=== PATIENT | male | born 1950 | race Caucasian/White ===

== ENCOUNTER 2017-02-09 21:55 | Inpatient (IN) | payer OTHER ==
[~2017-02-09] VITALS: Ht 167.6 cm; Wt 47.7 kg
[2017-02-09] MEDS ORDERED: SODIUM CHLORIDE 0.9% 250ML 250 ML IV STA (22:12)
[2017-02-09] MEDS ORDERED: AMPICILLIN/SULBACTAM SOD INJ 3,000 MG in SODIUM CHLORIDE 0.9% 100ML 100 ML IV ONE (22:15)
[2017-02-09] MEDS ORDERED: DEXAMETHASONE SOD INJ 10 MG/ML VIAL IV ONE (22:15)
[2017-02-09] MEDS ORDERED: OPTIRAY 320 IV PRN (22:30)
[2017-02-09] MEDS ORDERED: GLIP5TAB11 PO (22:36)
[2017-02-09] MEDS ORDERED: LISI-789 PO (22:37)
[2017-02-09] MEDS ORDERED: ASPI325T39 PO (22:38)
[2017-02-09] MEDS ORDERED: GABA-113 PO (22:38)
[2017-02-09] MEDS ORDERED: METF-384 PO (22:39)
[2017-02-09] MEDS ORDERED: LINA1TAB PO (22:40)
[2017-02-09] MEDS ORDERED: ACET325T96 PO (22:42)
[2017-02-09 22:51] LABS: BASO % 0.2 %; BASO ABS # 0.02 K/uL (0-0.2); COMPLETE YES; EOS % 2.4 %; IG% 0.7 %; LYMPH ABS # 2.84 K/uL (1.2-3.4); MEAN CELL VOLUME 91.5 fL (80-100); MEAN CORPUSCULAR HEMOGLOBIN 30.9 pg (25-34); MEAN CORPUSCULAR HGB CONC 33.7 g/dl (32-36); MEAN PLATELET VOLUME 9.6 fL (7.4-10.4); MONO % 9.8 %; NEUT % 64.9 %; PLATELET COUNT 399 K/uL (130-400); WHITE BLOOD COUNT 12.93 K/uL (4.8-10.8)
[2017-02-09 23:17] LABS: BLOOD UREA NITROGEN 15 mg/dl (7-18); BUN/CREATININE RATIO 17.1 (10-20); CALCIUM 10.1 mg/dl (8.5-10.1); CARBON DIOXIDE 30 mmol/L (21-32); CHLORIDE 100 mmol/L (98-107); CREATININE 0.87 mg/dl (0.60-1.40); GLUCOSE 432 mg/dl (70-99); POTASSIUM 4.6 mmol/L (3.5-5.1); SODIUM 137 mmol/L (136-145)
[2017-02-09 23:59] LABS: VEN BLD GAS O2 SATURATION < 60.0 %; VEN BLOOD GAS BASE EXCESS -3.8 mmol/L; VENOUS BLOOD GAS PCO2 52 mmHg (38.0-50.0); VENOUS BLOOD GAS PO2 18 mmHg
[2017-02-10] MEDS ORDERED: SODIUM CHLORIDE 0.9% 1000ML 1,000 ML IV STA (00:08)
[2017-02-10] MEDS ORDERED: NovoLIN-R INSULIN PER UNIT CHARGE IV STA (00:08)
[2017-02-10] MEDS ORDERED: ONDANSETRON INJ 2 MG/ML 2 ML VIAL IV PRN (02:30)
[2017-02-10] MEDS ORDERED: ACETAMINOPHEN 325 MG TAB PO PRN (02:30)
[2017-02-10] MEDS ORDERED: MoRPHine SULFATE 2 MG/ML CARP IV PRN (02:30)
[2017-02-10] MEDS ORDERED: POLYETHYLENE (MIRALAX) 17 GM PACK PO PRN (02:30)
[2017-02-10] MEDS ORDERED: ALUMINUM/MAGNESIUM/SIMETH (MAALOX MAX) 30 ML UDC PO PRN (02:30)
--- NOTE | 2017-02-10 02:37 | History and Physical ---
History & Physical Date & Time of Service: Feb 10, 2017 at 02:37 Chief Complaint: Swelling On Rt Side Of Face,Jaw Pain,Unable To Eat Primary Care Physician: No Doctor, Assigned History of Present Illness Source: patient 67-year-old male with a past medical history of diabetes, stroke presented the ER with complaints of right-sided facial swelling and pain. The patient is originally from [place] and [place] in [place]. He presented to the ER with complaints of toothache and swelling on his right mandible which started 2 days ago and had worsened after he ate a hard piece of bread. He stated that he also had some drainage from the swelling into his oral cavity. He uses dentures for his lower teeth and hasn't been able to use them due to the swelling and had noticed a darker area on the swelling. Denied any fevers or chills. Denied chewing tobacco but smokes about 1 pack of cigarettes per day Past Medical/Surgical History Diabetes, stroke Social History Smoking Status: Current Every Day Smoker Allergies Coded Allergies: Empagliflozin (Unverified Allergy, Severe, JOINT AND MUSCLE PAIN / NO APPETITE, 02/09/17) Canagliflozin (Unverified Allergy, Intermediate, RASH AND SWELLING, ) Home Medications Scheduled Acetaminophen Tab (Tylenol), 650 MG PO DAILY Amoxicillin & Pot Clavulanate (Augmentin 875-125 mg), 1 TAB PO BID Aspirin (Aspirin Ec), 325 MG PO DAILY Gabapentin (Neurontin), 300 MG PO TID Glipizide (Glucotrol), 5 MG PO BID Linagliptin (Tradjenta), 5 MG PO DAILY Lisinopril (Zestril), 2.5 MG PO DAILY Metformin Hcl (Glucophage), 1,000 MG PO BID Review of Systems Constitutional: No fever, No chills Eyes: No worsening of vision ENT: + problem reported (facial swelling) Respiratory: No cough, No sputum Cardiovascular: No chest pain Abdomen: No pain, No nausea, No vomiting Musculoskeletal: No joint pain Genitourinary - Male: No hematuria Neurologic: No memory loss Psychiatric: No depression symptoms Endocrine: No fatigue Hematologic / Lymphatic: No abnormal bleeding/bruising Integumentary: No rash Physical Exam Vital Signs Date Time Temp Pulse Resp B/P (MAP) Pulse Ox O2 Delivery O2 Flow Rate FiO2 02/10/17 01:29 89 16 124/73 98 Room Air 02/10/17 00:59 87 02/10/17 00:00 71 16 132/73 98 Room Air 02/09/17 22:02 36.7 99 16 124/70 95 Room Air General Appearance: WD/WN, no apparent distress Head: normocephalic Eyes: normal inspection ENT: hearing grossly normal, + pertinent finding (Right mandibular arae swollen , tender to palpation) Neck: supple Respiratory/Chest: chest non-tender, lungs clear, normal breath sounds, no respiratory distress, no accessory muscle use Cardiovascular: regular rate, rhythm Abdomen/GI: normal bowel sounds, non tender, soft Back: normal inspection Extremities/Musculoskelatal: no pedal edema Neurologic/Psych: alert, normal mood/affect, oriented x 3 Skin: normal color Diagnostics Laboratory Results Results Past 24 Hours Test 02/09/17 22:35 02/09/17 23:47 02/10/17 01:57 Range/Units White Blood Count 12.93 4.8-10.8 K/uL Red Blood Count 4.70 4.7-6.1 M/uL Hemoglobin 14.5 14.0-18.0 g/dL Hematocrit 43.0 42-52 % Mean Corpuscular Volume 91.5 80-100 fL Mean Corpuscular Hemoglobin 30.9 25-34 pg Mean Corpuscular Hemoglobin Concent 33.7 32-36 g/dl Platelet Count 399 130-400 K/uL Mean Platelet Volume 9.6 7.4-10.4 fL Neutrophils (%) (Auto) 64.9 % Lymphocytes (%) (Auto) 22.0 % Monocytes (%) (Auto) 9.8 % Eosinophils (%) (Auto) 2.4 % Basophils (%) (Auto) 0.2 % Neutrophils # (Auto) 8.40 1.4-6.5 K/uL Lymphocytes # (Auto) 2.84 1.2-3.4 K/uL Monocytes # (Auto) 1.27 0.11-0.59 K/uL Eosinophils # (Auto) 0.31 0-0.5 K/uL Basophils # (Auto) 0.02 0-0.2 K/uL RDW Standard Deviation 44.5 36.4-46.3 fL RDW Coefficient of Variation 13.3 11.5-14.5 % Immature Granulocyte % (Auto) 0.7 % Immature Granulocyte # (Auto) 0.09 0.00-0.02 K/uL Sodium Level 137 136-145 mmol/L Potassium Level 4.6 3.5-5.1 mmol/L Chloride Level 100 98-107 mmol/L Carbon Dioxide Level 30 21-32 mmol/L Anion Gap 7.0 3-11 mmol/L Blood Urea Nitrogen 15 7-18 mg/dl Creatinine 0.87 0.60-1.40 mg/dl Est Creatinine Clear Calc Drug Dose 55.2 ml/min Estimated GFR () 102.8 Estimated GFR (Non- 88.7 BUN/Creatinine Ratio 17.1 10-20 Random Glucose 432 70-99 mg/dl Calcium Level 10.1 8.5-10.1 mg/dl Troponin I < 0.015 0-0.045 ng/ml Beta-Hydroxybutyric Acid 5.00 0.2-2.81 mg/dL Venous Blood pH 7.27 7.36-7.41 Venous Blood Partial Pressure CO2 52 38.0-50.0 mmHg Venous Blood Partial Pressure O2 18 mmHg Venous Blood HCO3 23 mmol/L Venous Blood Oxygen Saturation < 60.0 % Venous Blood Base Excess -3.8 mmol/L Bedside Glucose 291 70-99 mg/dl Diagnostic Radiology Facial CT: Abscess abutting the right mandible. The patient is largely edentulous though there is a tooth fragment with periapical lucency in abutting the region of the soft tissue abscess. Suspect odontogenic spread of infection. Lucency seen in region of right mandible adjacent to soft tissue abscess likely periapical abscess. Small fluid collections in the tonsillar region may represent small tonsillar abscess. These possible abscesses measure less than 1 cm in size Impression Assessment and Plan 67-year-old male with a past medical history of diabetes, stroke presented the ER with complaints of right-sided facial swelling and pain which started about 2 days ago. Denied any fevers and chills but has pain and swelling in the right mandibular area. Cellulitis secondary to Dental/periapical abscess: - Facial CT:Abscess abutting the right mandible. The patient is largely edentulous though there is a tooth fragment with periapical lucency in abutting the region of the soft tissue abscess. Suspect odontogenic spread of infection. Lucency seen in region of right mandible adjacent to soft tissue abscess likely periapical abscess. - Consider MRI to rule out osteomyelitis - Started on Unasyn and clindamycin - Consult maxillofacial surgery - Pain control with morphine as needed Hyperglycemia: - Blood sugar on arrival 432 - Received 10 units of insulin in the ER, repeat blood sugar 291 - Home medications held, ISS - Hemoglobin A1c ordered - Continue lisinopril History of smoking: - Smoking cessation counseling - NicoDerm patch DVT prophylaxis: SCDs Chemical anticoagulations avoided in anticipation of any surgical intervention DO NOT RESUSCITATE Disposition: Admitted to [facility] Please contact Daughter, Saige Beavers regarding treatment plan: Contact number: [phone] alternate: [phone] Attending Addendum: I physically seen and examined this patient, have supervised the medical residents activities, and agree with the H&P as noted above with the following exceptions: NONE The patient is awake, well-developed and adequately nourished, alert and oriented 3, normocephalic and atraumatic, lying in bed and in no acute distress. HEENT--PERRL, EOMI, mucous membranes and oropharynx dry, right facial swelling and tenderness along zygomatic arch toward maxillary bridge and then toward mental foramen. Neck--supple, no JVD or bruits, thyroid normal, trachea midline, no adenopathy. Heart--normal S1 and S2, no extra beats, no murmurs, rubs or gallops. Lungs--clear bilaterally with good air movement, no respiratory distress, no accessory muscle use. Abdomen--normal bowel sounds and soft, nontender and nondistended, no hernias or masses, no organomegaly. Extremities--no cyanosis, clubbing or edema. There are good distal pulses b/l. Dermatologic--normal skin turgor, normal color, warm and dry. Neurologic--cranial nerves II through XII grossly intact, motor and sensory examination normal. Rheumatologic--normal range of motion. Psychiatric--normal affect. Assessment and Plan: 1. Abscess abutting the right mandible/largely edentulous/periapical lucency with possible odontogenic spread of infection--the patient will be admitted to the medical surgical floor. Continue IV Unasyn 3 g every 6 hours begun emergency department, and add clindamycin 900 mg IV every 6 hours. Consult maxillofacial surgery. Advised tobacco cessation and start on NicoDerm patch. Place on IV fluids, and keep nothing by mouth for possible procedure. Level of Care Med/Surg Resuscitation Status DO NOT RESUSCITATE VTE Prophylaxis VTE Risk Assessment Done? Y/N: Yes Risk Level: Moderate Given or contraindicated: SCD's Resident Tracking Resident Involvement: Resident Care Provided Care Provided: Adult Hospital Medicine
[2017-02-10] MEDS ORDERED: GLUCAGON FOR INJ 1 MG VIAL SQ PRN (02:45)
[2017-02-10] MEDS ORDERED: GLUCOSE 40% GEL 15 GM TUBE PO PRN (02:45)
[2017-02-10] MEDS ORDERED: DEXTROSE 50% 50 ML SYR IV PRN (02:45)
[2017-02-10] MEDS ORDERED: GLUCOSE 10 TABS/TUBE PO PRN (02:45)
[2017-02-10 03:10] LABS: ALKALINE PHOSPHATASE 179 U/L (45-117); ALT/SGPT 17 U/L (12-78)
[2017-02-10 03:25] VITALS: BP 102/66; PULSE 82; TEMP 37.2; O2SAT 95; BMI 17.0
[2017-02-10 03:29] LABS: AST/SGOT 7 U/L (15-37)
[2017-02-10] MEDS ORDERED: IV FLUIDS COMPLETED PRN (03:45)
[2017-02-10] MEDS: CLINDAMYCIN IV 600 MG in DEXTROSE 5% 50ML 50 ML IV SCH ×2 (04:16→12:53)
[2017-02-10] MEDS: AMPICILLIN/SULBACTAM SOD INJ 3,000 MG in SODIUM CHLORIDE 0.9% 100ML 100 ML IV SCH ×2 (06:02→12:53)
[2017-02-10] MEDS: INSULIN ASPART 100 UNITS/ML 3 ML PEN SC SCH ×2 (06:30→12:54)
--- NOTE | 2017-02-10 06:32 | EMERGENCY ROOM VISIT NOTE ---
History First contact with patient: 22:05 Chief Complaint: FACIAL PAIN/INJURY Stated Complaint: DENTAL ABSCESS, HYPERGLYCEMIA History of Present Illness The patient is a 67 year old male who presents to the Emergency Room with complaints of dental pain and infection for the past few days who is visiting [place]. Tetanus is current. Patient wears dentures. He has no current teeth. Patient describes the pain as throbbing, ranging in severity 6 out of 10 worse with chewing and better with rest. Patient denies fevers, chest pain, dyspnea, neck pain, neck stiffness, diaphoresis, vomiting, diarrhea. Review of Systems See HPI for pertinent positives & negatives. A total of 10 systems reviewed and were otherwise negative. Past Medical/Surgical History Medical Problems: (1) Dental abscess (2) Hyperglycemia Diabetes, CVA with left hemiparalysis, hypertension Social History Smoking Status: Current Every Day Smoker Alcohol Use: none Drug Use: none Occupation Status: retired Current/Historical Medications Scheduled Acetaminophen Tab (Tylenol), 650 MG PO DAILY Aspirin (Aspirin Ec), 325 MG PO DAILY Gabapentin (Neurontin), 300 MG PO TID Glipizide (Glucotrol), 5 MG PO BID Linagliptin (Tradjenta), 5 MG PO DAILY Lisinopril (Zestril), 2.5 MG PO DAILY Metformin Hcl (Glucophage), 1,000 MG PO BID Allergies Coded Allergies: Empagliflozin (Unverified Allergy, Severe, JOINT AND MUSCLE PAIN / NO APPETITE, 02/09/17) Canagliflozin (Unverified Allergy, Intermediate, RASH AND SWELLING, ) Physical Exam Vital Signs Date Time Temp Pulse Resp B/P (MAP) Pulse Ox O2 Delivery O2 Flow Rate FiO2 02/10/17 01:29 89 16 124/73 98 Room Air 02/10/17 00:59 87 02/10/17 00:00 71 16 132/73 98 Room Air 02/09/17 22:02 36.7 99 16 124/70 95 Room Air Pain Rating (0-10): 0 Physical Exam VITALS: Vitals are noted on the nurse's note and reviewed by myself. Vital signs stable. GENERAL: Pleasant male, in no acute distress, nondiaphoretic, well-developed well-nourished. SKIN: The skin was without rashes, erythema, edema, or bruising. There is no tenting of the skin. Capillary reflex less than 2 seconds. HEAD: Normocephalic atraumatic. EARS: External auditory canals clear, tympanic membranes pearly carlson without erythema or effusion bilaterally. EYES: Pupils equal round and reactive to light and accommodation. Conjunctivae without injection, sclerae without icterus. Extraocular movements intact. NOSE: Patent, turbinates without inflammation or discharge. No sinus tenderness. MOUTH: Mucous membranes mildly dry. Pharynx without erythema or exudate. Uvula midline. Airway patent. Tongue does not deviate. Dental exam: Right lower gumline erythematous and edematous concerning for abscess. No teeth present. NECK: Supple without nuchal rigidity. No lymphadenopathy. No thyromegaly. Cervical spine is nontender. No JVD. HEART: Regular rate and rhythm LUNGS: Clear to auscultation bilaterally without wheezes, rales or rhonchi. No dullness to percussion. No retractions or accessory muscle use. ABDOMEN: Positive bowel sounds x 4. Normal tympanic percussion. Soft, nontender, without masses or organomegaly. Murry sign negative. No guarding or rebound tenderness. MUSCULOSKELETAL: No muscle atrophy, erythema, or edema noted. NEURO: Patient was alert and oriented to person place and time. Normal sensation to light and sharp touch. No new focal neurological deficits. Medical Decision & Procedures Laboratory Results 02/09/17 22:35 Red Blood Count 4.70, Mean Corpuscular Volume 91.5, Mean Corpuscular Hemoglobin 30.9, Mean Corpuscular Hemoglobin Concent 33.7, Mean Platelet Volume 9.6, Neutrophils (%) (Auto) 64.9, Lymphocytes (%) (Auto) 22.0, Monocytes (%) (Auto) 9.8, Eosinophils (%) (Auto) 2.4, Basophils (%) (Auto) 0.2, Neutrophils # (Auto) 8.40, Lymphocytes # (Auto) 2.84, Monocytes # (Auto) 1.27, Eosinophils # (Auto) 0.31, Basophils # (Auto) 0.02 Test 02/09/17 22:35 02/09/17 23:47 02/10/17 01:57 White Blood Count 12.93 K/uL (4.8-10.8) Red Blood Count 4.70 M/uL (4.7-6.1) Hemoglobin 14.5 g/dL (14.0-18.0) Hematocrit 43.0 % (42-52) Mean Corpuscular Volume 91.5 fL (80-100) Mean Corpuscular Hemoglobin 30.9 pg (25-34) Mean Corpuscular Hemoglobin Concent 33.7 g/dl (32-36) Platelet Count 399 K/uL (130-400) Mean Platelet Volume 9.6 fL (7.4-10.4) Neutrophils (%) (Auto) 64.9 % Lymphocytes (%) (Auto) 22.0 % Monocytes (%) (Auto) 9.8 % Eosinophils (%) (Auto) 2.4 % Basophils (%) (Auto) 0.2 % Neutrophils # (Auto) 8.40 K/uL (1.4-6.5) Lymphocytes # (Auto) 2.84 K/uL (1.2-3.4) Monocytes # (Auto) 1.27 K/uL (0.11-0.59) Eosinophils # (Auto) 0.31 K/uL (0-0.5) Basophils # (Auto) 0.02 K/uL (0-0.2) RDW Standard Deviation 44.5 fL (36.4-46.3) RDW Coefficient of Variation 13.3 % (11.5-14.5) Immature Granulocyte % (Auto) 0.7 % Immature Granulocyte # (Auto) 0.09 K/uL (0.00-0.02) Est Creatinine Clear Calc Drug Dose 55.2 ml/min Total Bilirubin 0.4 mg/dl (0.2-1) Direct Bilirubin 0.1 mg/dl (0-0.2) Aspartate Amino Transf (AST/SGOT) 7 U/L (15-37) Alanine Aminotransferase (ALT/SGPT) 17 U/L (12-78) Alkaline Phosphatase 179 U/L (45-117) Troponin I < 0.015 ng/ml (0-0.045) Total Protein 7.5 gm/dl (6.4-8.2) Albumin 3.6 gm/dl (3.4-5.0) Beta-Hydroxybutyric Acid 5.00 mg/dL (0.2-2.81) Venous Blood pH 7.27 (7.36-7.41) Venous Blood Partial Pressure CO2 52 mmHg (38.0-50.0) Venous Blood Partial Pressure O2 18 mmHg Venous Blood HCO3 23 mmol/L Venous Blood Oxygen Saturation < 60.0 % Venous Blood Base Excess -3.8 mmol/L Bedside Glucose 291 mg/dl (70-99) Medications Administered Medications (Trade) Dose Ordered Sig/Vince Route Start Time Stop Time Status Last Admin Dose Admin Ampicillin Sodium/ Sulbactam Sodium 3000 mg/Sodium Chloride 108 ml @ 200 mls/hr ONE ONCE IV 02/09/17 22:15 02/09/17 22:47 DC 02/09/17 22:47 200 MLS/HR Dexamethasone Sodium Phosphate (Decadron Inj) 10 mg NOW ONCE IV 02/09/17 22:15 02/09/17 22:16 DC 02/09/17 22:45 10 MG Sodium Chloride 250 ml @ 999 mls/hr Q16M STAT IV 02/09/17 22:12 02/09/17 22:27 DC 02/09/17 22:44 999 MLS/HR Sodium Chloride 1,000 ml @ 999 mls/hr Q1H1M STAT IV 02/10/17 00:08 02/10/17 01:08 DC 02/10/17 00:08 999 MLS/HR Insulin Human Regular (novoLIN-R U-100 PER UNIT) 10 units NOW STAT IV 02/10/17 00:08 02/10/17 00:10 DC 02/10/17 01:24 10 UNITS ED Course Prior records/ancillary studies reviewed and summarized above. Nursing notes reviewed. Additional history obtained from family. The patient's history was concerning for dental infection. Differential diagnosis: Etiologies such as metabolic, infection, hypo/hyperglycemia, electrolyte abnormalities, cardiac sources, intracerebral event, toxicologic, neurologic, as well as others were entertained. Physical examination: As above. ER treatment provided: IV Lock IV fluids, insulin, Unasyn On reassessment the patient felt better. Diagnostics interpretation by me: ECG: Normal sinus, normal intervals, no acute ST-T wave changes. Impression normal sinus rhythm interpreted by myself The labs revealed hyperglycemia. PH on VBG is slightly low. No anion gap. Leukocytosis. Imaging studies: CT FACIAL: Abscess abutting the right mandible. The patient is largely edentulous though there is a tooth fragment with periapical lucency abutting the region of soft tissue abscess. Example image 46/300. Suspect odontogenic spread of infection. Lucency seen in region of right mandible adjacent to soft tissue abscess likely periapical abscess. Small fluid collections in the tonsillar regions may represent small tonsillar abscesses. These possible abscesses measure less than 1 cm in size. Radiologist: Tomás Engle M.D. Study ready at 23:54 and initial results transmitted Consultation: A consultation was placed with the hospitalist, Emanuel Cooper. The case was discussed and diagnostics were reviewed. The patient was evaluated in the ER for further treatment. Exam and history seem consistent with dental infection with hyperglycemia with concerns for developing DKA. Patient will be evaluated by medicine. He was hydrated as above and started on antibiotics. He is given insulin. Negative troponin and EKG.By the evaluation outlined above emergent etiologies such as electrolyte abnormalities, cardiac sources, intracerebral event, toxologic, neurologic, metabolic, as well as others were deemed relatively unlikely. The pt informed about the findings as listed above. All questions were answered and pleased with the treatment. Case reviewed with my attending. Medical Decision as above Impression Primary Impression: Dental abscess Additional Impression: Hyperglycemia Departure Information Dispostion Admitted as an inpatient Condition FAIR Referrals No Doctor, Assigned (PCP) Forms HOME CARE DOCUMENTATION FORM, IMPORTANT VISIT INFORMATION Patient Instructions My [facility] Problem Qualifiers
[2017-02-10 07:26] VITALS: BP 100/64; PULSE 71; TEMP 36.8; O2SAT 94
--- NOTE | 2017-02-10 07:31 | DIAGNOSTIC IMAGING REPORT ---
FACIAL-MAXILLOFACIAL WITH CLINICAL HISTORY: 67 years-old Male presenting with right lower jaw infx. TECHNIQUE: Multidetector CT of the face was performed after the administration of intravenous contrast. COMPARISON: None. CT DOSE: The estimated cumulative dose is 760.89 mGy.cm. FINDINGS: Field Agronomist topogram: Unremarkable. Rim-enhancing fluid collection along the labial aspect of the right mandibular body, measuring 19 mm in diameter. The adjacent right mandible demonstrates subtle asymmetric cortical thinning relative to the left. The single tooth that is remaining is in this region has an associated periapical lucency with agus cortical disruption along the labial aspect (series 3 image 125). This is in direct communication with the soft tissue abscess. Otherwise, the patient is edentulous. Microcystic change of the tonsils with the largest cystic region measuring 3 mm with few foci of small calcifications. These are consistent with tonsilloliths within dilated tonsillar crypts. No convincing evidence of peritonsillar abscess. Paranasal sinuses and mastoid air cells clear. Orbits normal. Vessels patent. Arachnoid granulations noted along the course of the right transverse sinus. Limited intracranial evaluation within normal limits for age. IMPRESSION: 1. 19 mm odontogenic abscess overlying the right mandibular body associated with the single remaining right mandibular tooth and periapical abscess. Electronically signed by: Leroy Mojica M.D. 02/10/2017 7:29 AM Dictated Date/Time: 02/10/2017 7:18 AM
[2017-02-10 07:58] LABS: BUN/CREATININE RATIO 31.2 (10-20); CREATININE 0.49 mg/dl (0.60-1.40)
[2017-02-10 08:01] LABS: ESTIMATED AVERAGE GLUCOSE 226 mg/dl; HA1C FLAG Normal (Normal)
[2017-02-10 08:02] LABS: POTASSIUM 3.9 mmol/L (3.5-5.1)
[2017-02-10] MEDS ORDERED: D5W AND NSS 1,000 ML IV SCH (08:30)
[2017-02-10] MEDS: GABAPENTIN 300 MG CAP PO SCH ×2 (08:47→14:00)
[2017-02-10] MEDS ORDERED: LISINOPRIL 2.5 MG TAB PO SCH (09:00)
[2017-02-10] MEDS ORDERED: ASPIRIN 325 MG ECTAB PO SCH (09:00)
[2017-02-10] MEDS ORDERED: NICOTINE 21 MG/24 HR TDSY TD SCH (09:00)
[2017-02-10 12:03] VITALS: BP 100/64; PULSE 71; TEMP 36.8; O2SAT 94
[2017-02-10] MEDS ORDERED: AMOX875T PO ×2 (13:45→14:21)
--- NOTE | 2017-02-10 13:53 | Discharge Instructions ---
Discharge Instructions Date of Service Feb 10, 2017. Admission Reason for Admission: Dental Abscess, Hyperglycemia Discharge Discharge Diagnosis / Problem: Dental Abscess Discharge Goals Goal(s): Decrease discomfort, Improve disease control Activity Recommendations Activity Limitations: per Instructions/Follow-up section . Instructions / Follow-Up Instructions / Follow-Up During this visit, you were diagnosed with a dental abscess in the right side of your jaw. The abscess may drain as it heals. You can massage the area as you are able to help with this process. You have been treated with some antibiotics and painkillers. An appointment is being set up for you to see a surgeon (Dr. Guallpa) who will determine if you need to have the abscess drained or not. They will contact you with the details of this appointment. We are sending you home on an antibiotic called Augmentin. Take 1 tablet TWICE daily with food. You may be able to stop this sooner after your appointment with the surgeon. Continue to take the antibiotic and be sure to ask at the appointment next week if you should continue to take the antibiotic or not. If your symptoms worsen before your appointment next week, please return to the ED. Current Hospital Diet Patient's current hospital diet: Regular Diet, Diabetes Type 2 Diet Discharge Diet Recommended Diet: Diabetes Type 2 Diet Pending Studies Studies pending at discharge: no Laboratory Results Hemoglobin A1c Test 02/10/17 06:42 Range/Units Estimated Average Glucose 226 mg/dl Hemoglobin A1c 9.5 H 4.5-5.6 % Medical Emergencies . Who to Call and When: Medical Emergencies: If at any time you feel your situation is an emergency, please call 911 immediately. . Non-Emergent Contact Non-Emergency issues call your: Primary Care Provider . . "Provider Documentation" section prepared by Leisa Denton. . VTE Core Measure Inpt VTE Proph given/why not?: SCD's
[2017-02-10 14:56] VITALS: Ht 167.6 cm; Wt 47.7 kg
--- NOTE | 2017-02-10 16:41 | Discharge Summary ---
Discharge Summary Date of Service Feb 10, 2017. (Leisa Denton M.D.) Discharge Summary Admission Date: Feb 10, 2017 at 02:36 Discharge Date: Feb 10, 2017 Discharge Disposition: Home Principal Diagnosis: Dental abscess Procedures: Facial CT: Abscess abutting the right mandible. The patient is largely edentulous though there is a tooth fragment with periapical lucency in abutting the region of the soft tissue abscess. Suspect odontogenic spread of infection. Lucency seen in region of right mandible adjacent to soft tissue abscess likely periapical abscess. Consultations: Oromaxillofacial surgeon (Leisa Denton M.D.) Medication Reconciliation New Medications: Amoxicillin & Pot Clavulanate (Augmentin 875-125 mg) 1 Tab Tab 1 TAB PO BID for 14 Days, #28 TAB Continued Medications: Acetaminophen Tab (Tylenol) 325 Mg Tab 650 MG PO DAILY, TAB Aspirin (Aspirin Ec) 325 Mg Tab 325 MG PO DAILY Gabapentin (Neurontin) 300 Mg Cap 300 MG PO TID, CAP Glipizide (Glucotrol) 5 Mg Tab 5 MG PO BID, TAB Linagliptin (Tradjenta) 5 Mg Tab 5 MG PO DAILY for 90 Days, #90 TAB 3 Refills Lisinopril (Zestril) 2.5 Mg Tab 2.5 MG PO DAILY Metformin Hcl (Glucophage) 1,000 Mg Tab 1000 MG PO BID, TAB Discharge Exam Review of Systems: Constitutional: No fever, No chills, No sweats, No weight loss, No weakness , No fatigue, No problem reported Eyes: No worsening of vision, No eye pain, No redness, No discharge, No diplopia, No problem reported ENT: + dental problems, + trouble swallowing (2/2 previous stroke), No hearing loss, No unusual epistaxis, No nasal symptoms, No sore throat, No tinnitus, No problem reported Respiratory: No cough, No sputum, No wheezing, No shortness of breath, No dyspnea on exertion, No dyspnea at rest, No hemoptysis, No problem reported Cardiovascular: No chest pain, No orthopnea, No PND, No edema, No claudication, No palpitations, No problem reported Abdomen: No pain, No nausea, No vomiting, No diarrhea, No constipation, No GI bleeding, No problem reported Musculoskeletal: No joint pain, No muscle pain, No swelling, No calf pain, No problem reported Genitourinary - Male: No hematuria, No dysuria, No urinary frequency, No urinary urgency, No urinary hesitancy, No urinary retention, No urinary incontinence, No penile discharge, No lesions, No impotence, No problem reported Neurologic: No memory loss, No paralysis, No weakness, No numbness/tingling , No vertigo, No balance problems, No problem reported Psychiatric: No depression symptoms, No anhedonism, No anxiety, No insomnia , No substance abuse, No problem reported Endocrine: No fatigue, No excessive thirst, No excessive urination, No problem reported Hematologic / Lymphatic: No abnormal bleeding/bruising, No clotting problems , No swollen lymph nodes, No night sweats, No problem reported Integumentary: No rash, No itch, No new/changing skin lesions, No color change, No bleeding, No problem reported Physical Exam: General Appearance: WD/WN, no apparent distress Eyes: normal inspection, PERRL, EOMI, sclerae normal ENT: hearing grossly normal, pharynx normal, + pertinent finding (1.5x 1" swelling of lower right mandible) Neck: supple, thyroid normal, no JVD, no carotid bruits Respiratory/Chest: chest non-tender, lungs clear, normal breath sounds, no respiratory distress, no accessory muscle use Cardiovascular: regular rate, rhythm, no edema, no JVD, no murmur, normal peripheral pulses Abdomen / GI: normal bowel sounds, non tender, soft, no pulsatile mass Extremities: normal inspection, no pedal edema 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 PMH includes: diabetes, stroke He stated that there was some drainage from the swelling into his oral cavity. He uses dentures for his lower teeth and hasn't been able to use them due to the swelling. Hospital Course: Cellulitis secondary to Dental/periapical abscess: - Facial CT:Abscess abutting the right mandible. The patient is largely edentulous though there is a tooth fragment with periapical lucency in abutting the region of the soft tissue abscess. Suspect odontogenic spread of infection. Lucency seen in region of right mandible adjacent to soft tissue abscess likely periapical abscess. - Considered MRI to rule out osteomyelitis, but considering acute presentation, opted against. - Started on Unasyn and clindamycin while admitted - DIscharged on augmentin 875 BID x 14d (to be reassessed at Dr. Guallpa's visit) - Consulted maxillofacial surgeon, Dr. Guallpa, who will see him next week after course of antibiotics to determine if abscess needs to be drained - Pain controlled with morphine as needed - Patient tolerated soft diet well Hyperglycemia: - Blood sugar on arrival 432 - Received 10 units of insulin in the ER, repeat blood sugar 291 - Home medications held, ISS - Hemoglobin A1c: 9.5% - Visited by software educator - Continue lisinopril - Recommend further evaluation of medications and diabetes control by PCP History of smoking: - Smoking cessation counseling - NicoDerm patch Total Time Spent: Less than 30 minutes This includes examination of the patient, discharge planning, medication reconciliation, and communication with other providers. (Leisa Denton M.D.) Resident Physician Supervision Note: I interviewed and examined the patient. Discussed with Dr. Denton and agree with findings and plan as documented in the note. Any exceptions or clarifications are listed here: None Documented By: Darwin Vargas feeling much better, also notes some pus has drained. visited and d/w pt then dtr arrived re-discussed plans with her as well. called dr guallpa and personally reviewed case - he noted most appropriate course would be Abx first, drainage after abx have been on for a while. we discussed PO abx and home, f/u office with dr guallpa next week - agreed this was most appropriate, pt/dtr agree as well. vitals noted cheek only mildly swollen nad breathing unlabored dental abscess - improving clinically -technically met SIRS criteria by HR and WBC on admission, so for clarification purposes, although very mild, would be reasonable to call this dental abscess w sepsis present on admission -safe/stable for home -maxillofacial as outpt next week - had RN Eamon assist in ensuring appointment would not be lost -augmentin -in regards to question of jaw osteo - unlikely. would be on abx until maxillofacial sees as well - when evaluated by maxilofacial if concern on osteo persists then after infection has cleared and less chance of false positive, could then consider MRI. d/w pt and dtr in this regard as well - if osteo would need prolonged abx, but at the "front end" of treatment, most rational course is the same. -stable for home (is going to be in the area for the next month visiting family) (Darwin Vargas D.Maggie.) Discharge Instructions Please refer to the electronic Patient Visit Report (Discharge Instructions) for additional information. (Leisa Denton M.D.) Additional Copies To Jean Guallpa DMD, MD, FACS Resident Tracking Resident Involvement: Resident Care Provided Care Provided: Adult Hospital Medicine (Leisa Denton M.D.)
--- NOTE | 2017-02-10 17:14 | Medical Student: [facility] ---
Med Student Progress Note Date of Service Feb 10, 2017. Subjective Pt evaluation today including: conversation w/ patient Mr. Beavers is a 67 year old male with a PMH significant for DM and stroke in January 2016 who presented on 02/09 for right sided dental pain and swelling of a couple days duration. He describes the pain as throbbing and at worst is was 10/ 10. He currently wears dentures. This all began a couple days ago after chewing on hard garlic bread which he believes cut the right side of his gum. Yesterday , there was drainage coming from his right gum. The drainage was clear in color and not foul smelling. Today he denies fever, GAINES, blurry vision, ear pain, facial pain, recent illness, chest pain, SOB, abdominal pain, constipation, or diarrhea. He is from the [facility] and is visiting his daughter here in [place] until the middle of February. Review of Systems Constitutional: No fever, No chills Eyes: No worsening of vision ENT: No hearing loss Respiratory: No cough, No sputum, No wheezing, No shortness of breath Cardiac: No chest pain, No edema, No palpitations Abdomen: No pain, No nausea, No vomiting, No diarrhea, No constipation Male : No dysuria, No urinary frequency Endo: No fatigue Skin: No rash, No itch Objective Vital Signs Date Time Temp Pulse Resp B/P (MAP) Pulse Ox O2 Delivery O2 Flow Rate FiO2 02/10/17 12:03 36.8 71 16 94 Room Air 02/10/17 08:00 Room Air 02/10/17 07:26 36.8 71 16 100/64 (76) 94 Room Air 02/10/17 03:25 37.2 82 18 102/66 95 Room Air 02/10/17 03:18 80 16 126/63 97 Room Air 02/10/17 02:53 83 16 134/79 98 02/10/17 01:29 89 16 124/73 98 Room Air 02/10/17 00:59 87 02/10/17 00:00 71 16 132/73 98 Room Air 02/09/17 22:02 36.7 99 16 124/70 95 Room Air FACIAL-MAXILLOFACIAL WITH CLINICAL HISTORY: 67 years-old Male presenting with right lower jaw infx. TECHNIQUE: Multidetector CT of the face was performed after the administration of intravenous contrast. COMPARISON: None. CT DOSE: The estimated cumulative dose is 760.89 mGy.cm. FINDINGS: [employer] Mechanical topogram: Unremarkable. Rim-enhancing fluid collection along the labial aspect of the right mandibular body, measuring 19 mm in diameter. The adjacent right mandible demonstrates subtle asymmetric cortical thinning relative to the left. The single tooth that is remaining is in this region has an associated periapical lucency with agus cortical disruption along the labial aspect (series 3 image 125). This is in direct communication with the soft tissue abscess. Otherwise, the patient is edentulous. Microcystic change of the tonsils with the largest cystic region measuring 3 mm with few foci of small calcifications. These are consistent with tonsilloliths within dilated tonsillar crypts. No convincing evidence of peritonsillar abscess. Paranasal sinuses and mastoid air cells clear. Orbits normal. Vessels patent. Arachnoid granulations noted along the course of the right transverse sinus. Limited intracranial evaluation within normal limits for age. IMPRESSION: 1. 19 mm odontogenic abscess overlying the right mandibular body associated with the single remaining right mandibular tooth and periapical abscess. 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, + motor weakness (4/5 strength left upper and lower extremities, 5/5 strength right upper and lower extremities ) Skin: normal color, warm/dry, no rash Laboratory Results Last 24 Hours Test 02/09/17 22:35 02/09/17 23:47 02/10/17 01:57 02/10/17 06:42 White Blood Count 12.93 K/uL Red Blood Count 4.70 M/uL Hemoglobin 14.5 g/dL Hematocrit 43.0 % Mean Corpuscular Volume 91.5 fL Mean Corpuscular Hemoglobin 30.9 pg Mean Corpuscular Hemoglobin Concent 33.7 g/dl Platelet Count 399 K/uL Mean Platelet Volume 9.6 fL Neutrophils (%) (Auto) 64.9 % Lymphocytes (%) (Auto) 22.0 % Monocytes (%) (Auto) 9.8 % Eosinophils (%) (Auto) 2.4 % Basophils (%) (Auto) 0.2 % Neutrophils # (Auto) 8.40 K/uL Lymphocytes # (Auto) 2.84 K/uL Monocytes # (Auto) 1.27 K/uL Eosinophils # (Auto) 0.31 K/uL Basophils # (Auto) 0.02 K/uL RDW Standard Deviation 44.5 fL RDW Coefficient of Variation 13.3 % Immature Granulocyte % (Auto) 0.7 % Immature Granulocyte # (Auto) 0.09 K/uL Sodium Level 137 mmol/L 139 mmol/L Potassium Level 4.6 mmol/L 3.9 mmol/L Chloride Level 100 mmol/L 107 mmol/L Carbon Dioxide Level 30 mmol/L 26 mmol/L Anion Gap 7.0 mmol/L 6.0 mmol/L Blood Urea Nitrogen 15 mg/dl 15 mg/dl Creatinine 0.87 mg/dl 0.49 mg/dl Est Creatinine Clear Calc Drug Dose 55.2 ml/min 97.3 ml/min Estimated GFR () 102.8 130.1 Estimated GFR (Non- 88.7 112.3 BUN/Creatinine Ratio 17.1 31.2 Random Glucose 432 mg/dl 169 mg/dl Calcium Level 10.1 mg/dl 9.0 mg/dl Total Bilirubin 0.4 mg/dl Direct Bilirubin 0.1 mg/dl Aspartate Amino Transf (AST/SGOT) 7 U/L Alanine Aminotransferase (ALT/SGPT) 17 U/L Alkaline Phosphatase 179 U/L Troponin I < 0.015 ng/ml Total Protein 7.5 gm/dl Albumin 3.6 gm/dl Beta-Hydroxybutyric Acid 5.00 mg/dL Venous Blood pH 7.27 Venous Blood Partial Pressure CO2 52 mmHg Venous Blood Partial Pressure O2 18 mmHg Venous Blood HCO3 23 mmol/L Venous Blood Oxygen Saturation < 60.0 % Venous Blood Base Excess -3.8 mmol/L Bedside Glucose 291 mg/dl Estimated Average Glucose 226 mg/dl Hemoglobin A1c 9.5 % Test 02/10/17 07:45 02/10/17 11:34 Bedside Glucose 160 mg/dl 196 mg/dl Assessment and Plan Assessment and Plan: Assessment: Mr. Beavers is a 67 year old male with a PMH significant for DM and stroke in January 2016 who presented on 02/09 for right sided dental pain and swelling of a couple days duration. In the ER, all vitals were stable except for tachycardia of 99 bpm. He had leukocytosis of 12.93 and blood gas showed respiratory acidosis with pH 7.27, CO2 52, O2 18, and HCO3 23. Blood sugar was 432 and beta hydroxybutyric acid was elevated at 5. Troponin was negative. Face CT showed 19 mm odontogenic abscess in the right mandible which appears to be associated with a single remaining mandibular tooth. EKG was normal. The patient was started on ampicillin/sulbactam and given 10 units of insulin. The patient is currently being managed for hyperglycemia and a dental abscess. Plan: Dental Abscess - face CT indicates 19 mm right odontogenic mandible abscess -consulted maxillofacial surgeon (Dr. 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
== END 2017-02-10 14:55 | disposition home or self-care (01) | DRG 158 ==
LOC: C.EDB 21:58 → C.MS2W 02-10 02:36 → ENRESERV 02-10 02:45
PROVIDERS: ADMIT Family Medicine; ATTEND Hospitalist
DX: K04.7 Periapical abscess without sinus (principal); L03.211 Cellulitis of face; E11.65 Type 2 diabetes mellitus with hyperglycemia; F17.200 Nicotine dependence, unspecified, uncomplicated; Z79.82 Long term (current) use of aspirin; Z86.73 Personal history of transient ischemic attack (TIA), and cerebral infarction without residual deficits